=== PATIENT | female | born 1935 | race Caucasian/White ===

== ENCOUNTER 2018-03-23 01:35 | Emergency (ER) | payer MEDICARE ==
[~2018-03-23] VITALS: Ht 152.4 cm; Wt 36.3 kg
[2018-03-23 01:35] VITALS: BP 164/71; PULSE 89; RESP 18; TEMP 98.3; O2SAT 100
[~2018-03-23 01:35] MED LIST: ADVA115A INH; OMEP10CA PO; PRED5TAB PO; WARF-20 PO
--- NOTE | 2018-03-23 01:56 | PD ---
HPI Chief Complaint: Right leg pain Time Seen by Provider: 01:50 Travel History International Travel<30 days: No Contact w/Intl Traveler<30days: No History of Present Illness HPI 82-year-old female patient with history of COPD, lung cancer status post treatment currently in remission, on 5 L of O2 at home, previous DVT currently on Coumadin, presents to the ER today because of 2 days history of right leg pains that started on its own, states it feels like a cramping pain, worse with movements on her right thigh area. She denies any new trouble with chest pains , fevers, worsening shortness of breath, or other symptoms. Modifying Factors: Worse with movements Associated Signs & Symptoms: Right leg pains Risk Factors: Elderly, previous DVT PFSH Past Medical History Anemia: Yes Arthritis: Yes Asthma: No Autoimmune Disease: No Anxiety: No Depression: No Heart Rhythm Problems: Yes (INCREASE HEART RATE ) Cancer: Yes (SMALL CELL LUNG LEFT LOBE/CHEMO/RADIATION) Cardiovascular Problems: No High Cholesterol: No Chemotherapy: Yes (LAST CHEMO APRIL 2013 RADIATION 03/2013 AGO) Chest Pain: No Congestive Heart Failure: No COPD: Yes Cerebrovascular Accident: No Diabetes: No Deep Vein Thrombosis: Yes (LEFT LEG -) Endocrine: No GERD: Yes Genitourinary: No Hepatitis: No Hiatal Hernia: No Immune Disorder: No Implanted Vascular Access Dvce: No Kidney Stones: No Musculoskeletal: No Neurologic: No Psychiatric: No Reproductive: Yes (FIBRIODS) Respiratory: Yes Migraines: No Radiation Therapy: Yes Renal Failure: No Seizures: No Sleep Apnea: No Thyroid Disease: No Ulcer: No Menopausal: Yes Past Surgical History Abdominal Surgery: No (APPENDECTOMY) AICD: No Appendectomy: Yes Arteriovenous Shunt: No Cardiac Surgery: No Ear Surgery: No Endocrine Surgery: No Eye Surgery: Yes (EYE CATARACT) Genitourinary Surgery: No Gynecologic Surgery: Yes (HYSTERECTOMY) Hysterectomy: Yes Insulin Pump: No Joint Replacement: No Neurologic Surgery: No Oral Surgery: Yes (TONSILLECTOMY) Pacemaker: No Thoracic Surgery: Yes (RIGHT IMPLANTED PORT) Tonsillectomy: Yes Other Surgery: Yes (PORT R CHEST LAST FLUSHED 07/11/13) Social History Alcohol Use: No Tobacco Use: No (QUIT DEC 2012) Substance Use: No Allergies-Medications (Allergen,Severity, Reaction): Coded Allergies: codeine (Unverified Allergy, Severe, HALLUCINATIONS, 03/23/18) meperidine (Unverified Allergy, Severe, TREMORS, 03/23/18) metoclopramide (Unverified Allergy, Severe, PAIN ATTACK, 03/23/18) hydromorphone (Unverified Adverse Reaction, Severe, NAUSEA, 03/23/18) Reported Meds & Prescriptions Reported Meds & Active Scripts Active Reported Potassium Chloride ER (Potassium Chloride) 10 Meq Cap 10 Meq PO DAILY Furosemide 20 Mg Tab 20 Mg PO DAILY Advair Hfa 12 GM Inh (Fluticasone-Salmeterol 12 GM Inh) 115-21 Mcg/Act Aer 2 Puff INH BID Omeprazole 10 Mg Cap 10 Mg PO DAILY Prednisone 5 Mg Tab 10 Mg PO DAILY Warfarin 4 Mg Tab 5 Mg PO DAILY Review of Systems Except as stated in HPI: all other systems reviewed are Neg Physical Exam Narrative GENERAL: Well-developed thin elderly white female patient currently and moderate distress. Awake and oriented 3. SKIN: Focused skin assessment warm/dry. HEAD: Atraumatic. Normocephalic. EYES: Pupils equal and round. No scleral icterus. No injection or drainage. ENT: No nasal bleeding or discharge. Mucous membranes pink and moist. NECK: Trachea midline. No JVD. CARDIOVASCULAR: Regular rate and rhythm. No murmur appreciated. RESPIRATORY: No accessory muscle use. Clear to auscultation. Breath sounds equal bilaterally. GASTROINTESTINAL: Abdomen soft, non-tender, nondistended. Hepatic and splenic margins not palpable. MUSCULOSKELETAL: No obvious deformities. No clubbing. No cyanosis. No edema. EXTREMITIES: No clubbing, cyanosis, or edema. No joint tenderness, effusion, or edema noted. Tenderness to palpation of the right thigh area. Good pedal pulses. NEUROLOGICAL: Awake and alert. No obvious cranial nerve deficits. Motor grossly within normal limits. Normal speech. PSYCHIATRIC: Appropriate mood and affect; insight and judgment normal. Data Data Last Documented VS Vital Signs Date Time Temp Pulse Resp B/P (MAP) Pulse Ox O2 Delivery O2 Flow Rate FiO2 03/23/18 02:58 92 18 133/69 (90) 100 Nasal Cannula 5.00 03/23/18 01:35 98.3 Orders Orders Complete Blood Count With Diff (03/23/18 01:50) Basic Metabolic Panel (Bmp) (03/23/18 01:50) Prothrombin Time / Inr (Pt) (03/23/18 01:50) Act Partial Throm Time (Ptt) (03/23/18 01:50) Morphine Inj (Morphine Inj) (03/23/18 02:00) Hip, Uni(Ap&Lat) Wo Ap Pelvis (03/23/18 01:50) Us Leg Venous Doppler (03/23/18 01:50) Morphine Inj (Morphine Inj) (03/23/18 02:30) Ed Discharge Order (03/23/18 04:11) Cyclobenzaprine (Flexeril) (03/23/18 04:15) Labs Laboratory Tests Test 03/23/18 01:55 White Blood Count 6.6 TH/MM3 Red Blood Count 3.40 MIL/MM3 Hemoglobin 9.8 GM/DL Hematocrit 28.0 % Mean Corpuscular Volume 82.6 FL Mean Corpuscular Hemoglobin 28.7 PG Mean Corpuscular Hemoglobin Concent 34.8 % Red Cell Distribution Width 15.8 % Platelet Count 265 TH/MM3 Mean Platelet Volume 8.3 FL Neutrophils (%) (Auto) 80.5 % Lymphocytes (%) (Auto) 12.8 % Monocytes (%) (Auto) 5.5 % Eosinophils (%) (Auto) 0.1 % Basophils (%) (Auto) 1.1 % Neutrophils # (Auto) 5.3 TH/MM3 Lymphocytes # (Auto) 0.8 TH/MM3 Monocytes # (Auto) 0.4 TH/MM3 Eosinophils # (Auto) 0.0 TH/MM3 Basophils # (Auto) 0.1 TH/MM3 CBC Comment DIFF FINAL Differential Comment Prothrombin Time 19.9 SEC Prothromb Time International Ratio 2.0 RATIO Activated Partial Thromboplast Time 35.2 SEC Blood Urea Nitrogen 22 MG/DL Creatinine 1.10 MG/DL Random Glucose 97 MG/DL Calcium Level 8.5 MG/DL Sodium Level 136 MEQ/L Potassium Level 4.4 MEQ/L Chloride Level 99 MEQ/L Carbon Dioxide Level 31.1 MEQ/L Anion Gap 6 MEQ/L Estimat Glomerular Filtration Rate 48 ML/MIN MDM Medical Decision Making Medical Screen Exam Complete: Yes Emergency Medical Condition: Yes Medical Record Reviewed: Yes Interpretation(s) Laboratory Tests Test 03/23/18 01:55 Red Blood Count 3.40 MIL/MM3 (4.00-5.30) Hemoglobin 9.8 GM/DL (11.6-15.3) Hematocrit 28.0 % (35.0-46.0) Neutrophils (%) (Auto) 80.5 % (16.0-70.0) Lymphocytes # (Auto) 0.8 TH/MM3 (1.0-4.8) Prothrombin Time 19.9 SEC (9.8-11.6) Activated Partial Thromboplast Time 35.2 SEC (24.3-30.1) Blood Urea Nitrogen 22 MG/DL (7-18) Creatinine 1.10 MG/DL (0.50-1.00) Estimat Glomerular Filtration Rate 48 ML/MIN (>89) Last 24 hours Impressions Lower Extremity Ultrasound 03/23/18 015 Signed Impressions: Service Date/Time: Friday, March 23, 2018 02:26 - CONCLUSION: No DVT in the right leg. Popliteal fossa cyst. Marvin Bassett MD Hip X-Ray 03/23/18149 Signed Impressions: Service Date/Time: Friday, March 23, 2018 01:59 - CONCLUSION: Mild degenerative changes without fracture.. Marvin Bassett MD Differential Diagnosis DVT versus muscle cramps versus electrolyte abnormality versus claudication Narrative Course Ultrasound shows no signs of DVT. She does have a popliteal cyst. X-ray shows degenerative joint disease but otherwise was unremarkable for any signs of acute injuries. Lab work did not show significant electrolyte abnormalities. At this point, patient had been given medications for pain and is having some improvement in symptoms. Vital signs are stable in the ER. My plan would be to release her at this point with follow-up to primary care physician. She has good pulses and I do not suspect claudication in this case. The plan was discussed with her and she states understanding. Diagnosis Primary Impression: Leg cramps Med/Other Pt SpecificInfo: Prescription(s) given Scripts Cyclobenzaprine (Flexeril) 10 Mg Tab 10 MG PO TID for Muscle Spasm, #15 TAB 0 Refills Prov: See Mckinney MD 03/23/18 Disposition: 01 DISCHARGE HOME Condition: Stable See Mckinney MD March 23, 2018 01:56
[2018-03-23] MEDS ORDERED: MORPHINE SULFATE 2 MG/ML SYRINGE IV PUSH ONE (02:00)
[2018-03-23] MEDS ORDERED: FURO20TA PO (02:09)
[2018-03-23] MEDS ORDERED: POTA10CA PO (02:09)
[2018-03-23] MEDS ORDERED: MORPHINE SULFATE 4 MG/ML INJ IV PUSH ONE (02:30)
[2018-03-23 02:44] LABS: PROTHROMBIN TIME - PATIENT 19.9 SEC (9.8-11.6)
--- NOTE | 2018-03-23 02:44 | RADRPT ---
EXAM DATE/TIME: 03/23/2018 01:59 [facility] COMPARISON: No previous studies available for comparison. INDICATIONS : Right hip pain for 2 hours with no known injury MEDICAL HISTORY : None. SURGICAL HISTORY : None. ENCOUNTER: Initial ACUITY: 1 day PAIN SCORE: 10/10 LOCATION: Right proximal femur FINDINGS: A two view examination of the right hip was performed. Mild degenerative changes. No fracture. The ac etabulum is grossly intact. Minimal sclerosis right SI joint. CONCLUSION: Mild degenerative changes without fracture.. Marvin Bassett MD on March 23, 2018 at 2:42 Board Certified Radiologist. This report was verified electronically.
[2018-03-23 02:50] LABS: AUTOMATED NEUTROPHIL # 5.3 TH/MM3 (1.8-7.7); BASOPHIL # 0.1 TH/MM3 (0-0.2); BASOPHIL % 1.1 % (0.0-2.0); EOSINOPHIL % 0.1 % (0.0-4.0); HEMOGLOBIN 9.8 GM/DL (11.6-15.3); LYMPH % 12.8 % (9.0-44.0); LYMPHOCYTE # 0.8 TH/MM3 (1.0-4.8); MEAN CELL VOLUME 82.6 FL (80.0-100.0); MEAN CORPUSCULAR HEMOGLOBIN 28.7 PG (27.0-34.0); MEAN CORPUSCULAR HGB CONC 34.8 % (32.0-36.0); MEAN PLATELET VOLUME 8.3 FL (7.0-11.0); MONO % 5.5 % (0.0-8.0); MONOCYTE # 0.4 TH/MM3 (0-0.9); NEUT % 80.5 % (16.0-70.0); PLATELET COUNT 265 TH/MM3 (150-450); RED CELL DISTRIBUTION WIDTH 15.8 % (11.6-17.2); WHITE BLOOD COUNT 6.6 TH/MM3 (4.0-11.0)
[2018-03-23 02:58] VITALS: BP 133/69; PULSE 92; RESP 18; O2SAT 100
--- NOTE | 2018-03-23 03:37 | RADRPT ---
EXAM DATE/TIME: 03/23/2018 02:26 [facility] COMPARISON: No previous studies available for comparison. INDICATIONS : Right leg pain. MEDICAL HISTORY : Lung cancer. DVT. Chemotherapy. SURGICAL HISTORY : Tonsillectomy, Kyphoplasty. Appendectomy. ENCOUNTER: Initial ACUITY: 1 day PAIN SCORE: 8/10 LOCATION: Right leg. TECHNIQUE: Venous ultrasound of the leg was performed from the inguinal ligament to the proximal calf. Real-samanta e, color Doppler and spectral tracing, compression and augmentation techniques were used. FINDINGS: There is normal compressibility of the deep venous system from the inguinal region to the proximal ca lf. No echogenic clot is seen in the lumen of the common femoral, femoral, popliteal, and posterior tibial veins. There is a normal response of the venous system to proximal and distal augmentation an d respiration. Popliteal fossa cyst seen medially measuring 31 x 10 x 15 mm CONCLUSION: No DVT in the right leg. Popliteal fossa cyst. Marvin Bassett MD on March 23, 2018 at 3:35 Board Certified Radiologist. This report was verified electronically.
[2018-03-23 03:55] LABS: BICARBONATE 31.1 MEQ/L (21.0-32.0); CALCIUM 8.5 MG/DL (8.5-10.1)
[2018-03-23 03:58] LABS: CREATININE 1.1 MG/DL (0.50-1.00)
[2018-03-23] MEDS ORDERED: CYCL10TA PO (04:12)
[2018-03-23] MEDS ORDERED: CYCLOBENZAPRINE HCL 10 MG TAB PO ONE (04:15)
== END 2018-03-23 04:35 | disposition home or self-care (01) ==
LOC: PHED 01:35
DX: R25.2 Cramp and spasm (principal); M79.604 Pain in right leg; J44.9 Chronic obstructive pulmonary disease, unspecified; K21.9 Gastro-esophageal reflux disease without esophagitis; Z85.118 Personal history of other malignant neoplasm of bronchus and lung; Z86.718 Personal history of other venous thrombosis and embolism; Z87.891 Personal history of nicotine dependence
CPT/HCPCS: 73502; 80048; 85025; 85610; 85730; 93971; 96374; 99285; J2270